=== PATIENT | male | born 1990 | race Caucasian/White ===

== ENCOUNTER 2021-09-05 19:51 | Emergency (ER) | payer OTHER ==
--- NOTE | 2021-09-05 21:43 | EDM.PDOC ---
ED HPI GENERAL MEDICAL PROBLEM - General Chief Complaint: General Stated Complaint: pneumonia Time Seen by Provider: 09/05/21 21:20 Source of Information: Reports: Patient, RN. 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 Since then he has been hypervigilant and having a hard time relaxing. He called his psychiatrist today and was told to come to the ER to be medically cleared. He has a pHx of pneumonia so was somewhat concerned, but states he does not feel ill. Onset: Sudden Onset Date: 09/03/21 Duration: Day(s):, Waxing/Waning Location: Reports: Generalized Quality: Reports: Other (no pain) Severity: Moderate Improves with: Reports: None Worsens with: Reports: Other (? triggered by seeing the raccoon) Context: Reports: Other (See HPI) Associated Symptoms: Reports: No Other Symptoms Treatments [employer]: Reports: Other (see below) (none, has diazepam at home) - Related Data Allergies Allergy/AdvReac Type Severity Reaction Status Date / Time Latex, Natural Rubber Allergy Rash Verified 09/05/21 21:13 Past Medical History HEENT History: Reports: Hard of Hearing Respiratory History: Reports: Pneumonia, Recurrent Other Gastrointestinal History: ulcers Musculoskeletal History: Reports: Fracture, Neck Pain, Chronic Neurological History: Reports: Brain Injury, Concussion, Head Trauma Psychiatric History: Reports: ADHD, Anxiety, PTSD Hematologic History: Reports: Blood Transfusion(s) - Infectious Disease History Infectious Disease History: Reports: Chicken Pox, Influenza, Mononucleosis - Past Surgical History GI Surgical History: Reports: Cholecystectomy Neurological Surgical History: Reports: C-Spine, Spinal Fusion Social & Family History - Tobacco Use Tobacco Use Status *Q: Current Some Day Tobacco User Years of Tobacco use: 1 Packs/Tins Daily: 0.1 - Caffeine Use Caffeine Use: Reports: Coffee - Recreational Drug Use Recreational Drug Use: No ED ROS GENERAL - Review of Systems Review Of Systems: See Below Constitutional: Reports: No Symptoms HEENT: Reports: No Symptoms Respiratory: Reports: No Symptoms Cardiovascular: Reports: No Symptoms GI/Abdominal: Reports: No Symptoms : Reports: No Symptoms Musculoskeletal: Reports: No Symptoms Skin: Reports: No Symptoms Neurological: Reports: No Symptoms Psychiatric: Reports: Anxiety ED EXAM, GENERAL - Physical Exam Exam: See Below Exam Limited By: No Limitations General Appearance: Alert, WD/WN, No Apparent Distress Eye Exam: Bilateral Eye: Normal Inspection Ears: Normal External Exam, Normal Canal, Hearing Grossly Normal. No: Hearing Loss Ear Exam: Bilateral Ear: Auricle Normal, Canal Normal Nose: Normal Inspection, No Blood Throat/Mouth: Normal Inspection, Normal Lips, Normal Oropharynx, Normal Voice, No Airway Compromise Head: Atraumatic, Normocephalic Neck: Normal Inspection Respiratory/Chest: No Respiratory Distress, Lungs Clear, Normal Breath Sounds, No Accessory Muscle Use Cardiovascular: Regular Rate, Rhythm, No Edema GI/Abdominal: Normal Bowel Sounds, Soft, Non-Tender, No Distention Back Exam: Normal Inspection Extremities: Normal Inspection, Normal Range of Motion, Non-Tender, No Pedal Edema Neurological: Alert, Oriented, CN II-XII Intact, Normal Cognition, No Motor/Sensory Deficits Psychiatric: Normal Affect, Normal Mood Skin Exam: Warm, Dry, Intact, Normal Color, No Rash Course - Vital Signs Last Recorded V/S: Last Vital Signs Temp 36.5 C 09/05/21 21:19 Pulse 77 09/05/21 21:19 Resp 16 09/05/21 21:19 BP 147/89 H 09/05/21 21:19 Pulse Ox 98 09/05/21 21:19 Departure - Departure Time of Disposition: 21:43 Disposition: Home, Self-Care 01 Condition: Good Clinical Impression: Anxiety - Discharge Information *PRESCRIPTION DRUG MONITORING PROGRAM REVIEWED*: Not Applicable *COPY OF PRESCRIPTION DRUG MONITORING REPORT IN PATIENT ALFRED: Not Applicable Referrals: PCP,None [Primary Care Provider] - Additional Instructions: Talk to your psychiatrist tomorrow. If you can't sleep tonight take a diazepam. Return as needed. Sepsis Event Note (ED) - Evaluation Sepsis Screening Result: No Definite Risk - Focused Exam Vital Signs: Vital Signs Temp Pulse Resp BP Pulse Ox 09/05/21 21:19 36.5 C 77 16 147/89 H 98
== END 2021-09-05 22:01 | disposition home or self-care (01) ==
LOC: JP.ED 19:51
DX: F41.9 Anxiety disorder, unspecified (principal); Z91.040 Latex allergy status; Z72.0 Tobacco use
CPT/HCPCS: 99283